=== PATIENT | female | born 1995 | race Caucasian/White ===

== ENCOUNTER 2021-09-30 14:57 | Outpatient (CLI) | payer BC | END 2021-09-30 14:58 | disposition home or self-care (01) | LOC: CSHMRI 14:57 | PROVIDERS: ATTEND Student in an Organized Health Care Education/Training Program | DX: M51.17 Intervertebral disc disorders with radiculopathy, lumbosacral region (principal); M48.07 Spinal stenosis, lumbosacral region | CPT/HCPCS: 72148 ==